=== PATIENT | male | born 1940 | race African-American/Black ===

== ENCOUNTER 2019-07-10 20:20 | Emergency (ER) | payer OTHER ==
[2019-07-10 20:40] VITALS: BP 156/75; PULSE 60; BMI 25.1
--- NOTE | 2019-07-10 23:19 | PDOC ---
Documentation entered by Neeru Mcdowell SCRIBE, acting as scribe for Annalisa Agudelo MD. Annalisa Agudelo MD: This documentation has been prepared by the scribe, Neeru Mcdowell SCRIBE, under my direction and personally reviewed by me in its entirety. I confirm that the documentation accurately reflects all work, treatment, procedures, and medical decision making performed by me. History of Present Illness - General Chief Complaint: Pain, Acute Stated Complaint: SWELLING TO LEFT ELBOW TODAY History Source: Patient Exam Limitations: No Limitations - History of Present Illness Initial Comments: 07/10/19 21:12 The patient is an 79-year-old male, with a past medical history of DM and venous insufficiency, who presents to the ED with swelling to the LT elbow. Swelling began an hour prior to arrival. Patient states that he was seated with his elbows against the table as he was eating some fruit when he noted the swelling. He denies having any pain, redness, or warmth to the area. He iced the elbow before coming to the ED, which helped to bring some of the swelling down. He has never experienced something like this in the past. He denies any direct trauma to the area. The patient denies having any fevers or chills. Denies any other injuries or symptoms. Allergies: NKA PCP: Dr. Chapa Past History - Past Medical History Allergies/Adverse Reactions: Allergies Allergy/AdvReac Type Severity Reaction Status Date / Time No Known Allergies Allergy Verified 07/10/19 20:23 Home Medications: Ambulatory Orders Amlodipine Besylate 5 mg PO DAILY 07/10/19 Aspirin 81 mg PO DAILY 07/10/19 Insulin Sliding Scale [Novolog Vial Sliding Scale -] 0 units SQ TIDAC 07/10/19 Lisinopril 30 mg PO DAILY 07/10/19 Review of Systems - Review of Systems Able to Perform ROS?: Yes Comments:: 07/10/19 21:13 GENERAL/CONSTITUTIONAL: No fever or chills. No weakness. HEAD, EYES, EARS, NOSE AND THROAT: No change in vision. No ear pain or discharge. No sore throat. CARDIOVASCULAR: No chest pain or shortness of breath. RESPIRATORY: No cough, wheezing, or hemoptysis. GASTROINTESTINAL: No nausea, vomiting, diarrhea or constipation. GENITOURINARY: No dysuria, frequency, or change in urination. MUSCULOSKELETAL: (+)Swelling to LT elbow. No joint pain. No neck or back pain. SKIN: No rash NEUROLOGIC: No headache, vertigo, loss of consciousness, or change in strength/ sensation. ENDOCRINE: No increased thirst. No abnormal weight change. HEMATOLOGIC/LYMPHATIC: No anemia, easy bleeding, or history of blood clots. ALLERGIC/IMMUNOLOGIC: No hives or skin allergy. *Physical Exam - Vital Signs Last Vital Signs Temp Pulse Resp BP Pulse Ox 60 16 156/75 100 07/10/19 20:31 07/10/19 20:31 07/10/19 20:31 07/10/19 20:31 - Physical Exam Comments: 07/10/19 21:13 GENERAL: Awake, alert, and fully oriented, in no acute distress EXTREMITIES: (+)Marked edema over LT olecranon process without tenderness, flunctuance, discharge, erythema or increased warmth. No sign of pain with extension of the elbow. No significant pain with supination or pronation of the forearm. LT radial pulse was brisk at the wrist. Full function at the wrist distally. Remainder of the exam is normal. NEUROLOGICAL: Cranial nerves II through XII grossly intact. Normal speech. SKIN: Warm, Dry, normal turgor, no rashes or lesions noted. 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 He noted the swelling this afternoon as he placed his elbows on a table. He denies trauma , either acute or chronic to his elbow. Exam as noted. The patient has no increased warmth, erythema, tenderness or fluctuance of the area. There is no skin breakage or evidence of cellulitis in the area. He has no pain with extension of elbow joint or supination/pronation of forearm. Presentation most consistent with olecranon bursitis ; since there is no evidence of acute inflammation/infection in the area of edema, will not start antibiotics at this time. Family and patient states that the area was iced prior to coming to the ER and this caused some decrease in the amount of edema. Ice application should continue. Tim wrap was applied to the elbow area and that should be maintained during the day over the next 5 to 7 days (taken off at night). Patient should follow-up with his PMD, Dr. Chapa, within the next few days. If increased warmth, increased pain, fever develops, he return to the emergency room *DC/Admit/Observation/Transfer Diagnosis at time of Disposition: Olecranon bursitis of left elbow - Discharge Dispostion Disposition: HOME Condition at time of disposition: Stable - Referrals Referrals: Lm Chapa MD [Primary Care Provider] - 2 Days - Patient Instructions Printed Discharge Instructions: DI for Elbow Bursitis Additional Instructions: Ice to elbow as previously for the next 48 hours Tim wrap compression bandage to elbow during the day for the next 5-7 days Ibuprofen/naproxen/acetaminophen as needed for pain Return to ER if you have increased warmth/increased pain in elbow or you develop fever Follow-up with Dr. Chapa within the next 2-3 days - Post Discharge Activity
== END 2019-07-10 21:13 | disposition home or self-care (01) ==
LOC: FER 20:20
DX: M25.422 Effusion, left elbow (principal); M70.22 Olecranon bursitis, left elbow; E11.9 Type 2 diabetes mellitus without complications
CPT/HCPCS: 73070-TC-LT-FY; 99281-25

== ENCOUNTER 2021-03-03 23:13 | Emergency (ER) | payer OTHER ==
[2021-03-03] MEDS ORDERED: CIPROFLOXACIN 500 MG TABLET (RESTRICTED TO ID) PO ONE (23:35)
[2021-03-03 23:40] VITALS: BP 146/73; PULSE 73; TEMP 98.9; BMI 24.0
[2021-03-03] MEDS ORDERED: CIPROFLOXACIN 250 MG TABLET (RESTRICTED TO ID) PO ONE (23:44)
== END 2021-03-03 23:54 | disposition home or self-care (01) ==
LOC: FER 23:13
DX: R33.9 Retention of urine, unspecified (principal)
CPT/HCPCS: 99283-25

== ENCOUNTER 2021-04-03 07:42 | Emergency (ER) | payer OTHER ==
[2021-04-03 08:13] VITALS: TEMP 99; BMI 25.7
[2021-04-03] MEDS ORDERED: SODIUM CHLORIDE 0.9% 1000 ML INFUS.BAG IV ONE (08:40)
[2021-04-03 08:49] LABS: BASO % 0.2 % (0-2.0); EOS % 1.2 % (0-4.5); HEMATOCRIT 34.9 % (35.4-49); HEMOGLOBIN 11.4 GM/dl (11.7-16.9); LYMPH % 19.2 % (8-40); MCH 26.7 pg (25.7-33.7); MCHC 32.8 g/dl (32.0-35.9); MEAN CELL VOLUME 81.5 fl (80-96); MONO % 10.8 % (3.8-10.2); NEUT % 68.6 % (42.8-82.8); PLATELET COUNT 235 K/MM3 (134-434); RBC 4.28 M/mm3 (4.00-5.60); RDW 13.1 % (11.9-15.9); WHITE BLOOD COUNT 5.6 K/mm3 (4.0-10.8)
[2021-04-03 09:01] LABS: CALCIUM 8.2 mg/dl (8.5-10); CREATININE 0.9 mg/dl (0.55-1.3)
[2021-04-03 10:20] LABS: EPITHELIAL CELLS RARE /hpf
[2021-04-03] MEDS ORDERED: SULFAMETHOXAZOLE/TRIMETHOPRIM 800MG/160MG D.S. TABLET PO ONE (10:44)
[2021-04-03] MEDS ORDERED: SULFAMETHOXAZOLE/TRIMETHOPRIM 800MG/160MG D.S. TABLET ONE (10:50)
[2021-04-03 10:59] VITALS: BP 131/65; PULSE 65
== END 2021-04-03 11:23 | disposition home or self-care (01) ==
LOC: FER 07:42
DX: T83.018A Breakdown (mechanical) of other urinary catheter, initial encounter (principal); N39.0 Urinary tract infection, site not specified
CPT/HCPCS: 36415; 76857; 80048; 81003; 81015; 85025; 87086; 87186; 99284-25

== ENCOUNTER 2022-10-17 00:38 | Emergency (ER) | payer OTHER ==
[2022-10-17 00:51] VITALS: BP 160/72; PULSE 62; RESP 16; TEMP 99; BMI 25.7
[2022-10-17] MEDS ORDERED: AZITHROMYCIN 250 MG TABLET PO ONE (01:11)
[2022-10-17] MEDS ORDERED: AZITHROMYCIN 250 MG TABLET ONE (01:21)
== END 2022-10-17 01:24 | disposition home or self-care (01) ==
LOC: FER 00:38
DX: R05.1 Acute cough (principal); J02.9 Acute pharyngitis, unspecified
CPT/HCPCS: 99283-25